=== PATIENT | female | born 1995 | race Caucasian/White ===

== ENCOUNTER 2023-11-16 13:48 | Emergency (ER) | payer BC ==
[~2023-11-16] VITALS: Ht 165.1 cm; Wt 84.0 kg
[2023-11-16 14:05] VITALS: BP 145/78; PULSE 89; RESP 16; TEMP 98.7; O2SAT 100
[2023-11-16] MEDS ORDERED: HYDR453.4 TP (18:30)
== END 2023-11-16 19:53 | disposition home or self-care (01) ==
LOC: ER 13:48
DX: L20.9 Atopic dermatitis, unspecified (principal); N64.4 Mastodynia
CPT/HCPCS: 76641; 99284

== ENCOUNTER 2024-10-16 07:13 | Emergency (ER) | payer MEDICAID ==
[~2024-10-16] VITALS: Ht 160 cm; Wt 86.0 kg
[~2024-10-16 07:13] MED LIST: HYDR453.4 TP
[2024-10-16 07:20] VITALS: BP 135/75; TEMP 37.1; O2SAT 98; O2SAT 99
[2024-10-16 07:27] VITALS: PULSE 88; RESP 18
[2024-10-16] MEDS ORDERED: ACETAMINOPHEN 325MG TABLET PO ONE (07:30)
[2024-10-16 07:51] LABS: BASOPHILS % 0.5 % (0.0-2.0); EOSINOPHILS % 0.5 % (0.0-5.0); HEMATOCRIT. 38.4 % (36.0-48.0); HEMOGLOBIN. 12.9 g/dL (12.0-16.0); LYMPHOCYTES % 17.7 % (20.0-50.0); MEAN PLATELET VOLUME 9.2 fl (7.4-10.4); MONOCYTES % 6.4 % (2.0-8.0); NEUTROPHILS % 74.9 % (40.0-76.0); PLATELET 284 x1000/uL (130-400); RED BLOOD CELL COUNT 4.25 mill/uL (4.2-5.4); RED CELL DISTRIBUTION WIDTH 13.4 % (11.6-14.6)
[2024-10-16 08:05] LABS: HCG SCREEN NEGATIVE
[2024-10-16 08:09] LABS: CREATININE 0.8 mg/dL (0.6-1.0); UREA NITROGEN BLOOD 6 mg/dL (9-23)
[2024-10-16 08:11] LABS: ASPARTATE AMINOTRANSFERASE 19 IU/L (<34); BILIRUBIN DIRECT 0.2 mg/dL (<=3.0); BILIRUBIN TOTAL 0.7 mg/dL (0.1-1.0)
[2024-10-16 08:12] LABS: PROTEIN TOTAL 7.5 g/dL (6.0-8.3)
[2024-10-16] MEDS ORDERED: ACETAMINOPHEN 325MG TABLET PO NR (09:15)
[2024-10-16] MEDS: ONDANSETRON 4MG ODT PO ONE (09:17)
[2024-10-16] MEDS: ACETAMINOPHEN 325MG TABLET PO NR (09:29)
[2024-10-16] MEDS: ONDANSETRON 4MG ODT PO NR (09:29)
[2024-10-16 10:23] VITALS: TEMP 98.8
[2024-10-16] MEDS ORDERED: ONDA-239 PO (11:00)
== END 2024-10-16 11:06 | disposition home or self-care (01) ==
LOC: ER 07:13
DX: R10.9 Unspecified abdominal pain (principal); R11.2 Nausea with vomiting, unspecified; R19.7 Diarrhea, unspecified
CPT/HCPCS: 99284; 74176; 80076; 80048; 81025; 84703; 83690; 85025; 36415; Q0162